=== PATIENT | male | born 1945 | race Caucasian/White ===

== ENCOUNTER 2022-05-09 11:08 | Inpatient (IN) ==
[~2022-05-09 11:08] MED LIST: ASPIRIN 325 MG TABLET PO ONE; DIAZEPAM 5 MG TABLET PO ONE; MAGNESIUM SULF RIDER 2 GM/50 ML PREMIX IV PRN; POTASSIUM CHLORIDE RIDER 10 MEQ/100 ML PREMIX IV PRN; diphenhydrAMINE CAP 50 MG CAPSULE PO ONE
[2022-05-09] MEDS ORDERED: diphenhydrAMINE CAP 50 MG CAPSULE ONE (12:36)
[2022-05-09] MEDS ORDERED: DIAZEPAM 5 MG TABLET ONE (12:36)
[2022-05-09] MEDS ORDERED: ASPIRIN 325 MG TABLET ONE (12:36)
[2022-05-09] MEDS: SODIUM CHLORIDE 0.9% 1,000 ML IV SCH (12:42)
[2022-05-09] MEDS ORDERED: HYDROmorphone 1 MG/1 ML SYRINGE ONE (13:23)
[2022-05-09] MEDS ORDERED: MIDAZOLAM 2 MG/2 ML VIAL ONE (13:23)
[2022-05-09] MEDS ORDERED: HEPARIN 5,000 UNIT/1 ML VIAL ONE ×2 (14:09→14:19)
[2022-05-09] MEDS ORDERED: TIROFIBAN 5,000 MCG/100 ML PREMIX IV ONE (14:33)
[2022-05-09] MEDS ORDERED: PRASUGREL 10 MG TABLET ONE (15:03)
[2022-05-09] MEDS ORDERED: NITROGLYCERIN SL 0.4 MG TABLET SL PRN (15:05)
[2022-05-09] MEDS ORDERED: ZALEPLON 5 MG CAPSULE PO PRN (15:05)
[2022-05-09] MEDS ORDERED: ONDANSETRON 4 MG/2 ML VIAL IV PRN (15:05)
[2022-05-09] MEDS ORDERED: ONDANSETRON ODT 4 MG TABLET PO PRN (15:27)
[2022-05-09] MEDS ORDERED: clonazePAM 0.5 MG TABLET PO STA ×2 (15:59→16:09)
[2022-05-09] MEDS ORDERED: HYDROmorphone 1 MG/1 ML SYRINGE IV ONE (16:00)
[2022-05-09] MEDS: INSULIN GLARGINE 100 UNIT/ML SUBCUT SCH (20:10)
[2022-05-09] MEDS: clonazePAM 0.5 MG TABLET PO SCH (20:10)
[2022-05-09] MEDS: TAMSULOSIN 0.4 MG CAPSULE PO SCH (20:10)
[2022-05-09] MEDS: PANTOPRAZOLE 40 MG TABLET PO SCH (20:10)
[2022-05-09] MEDS ORDERED: NON-FORMULARY MEDICATION (Aspirin 81 mg Tablet) PO SCH (21:00)
[2022-05-09] MEDS ORDERED: clonazePAM 0.5 MG TABLET PO SCH (21:00)
[2022-05-10] MEDS: SODIUM CHLORIDE 0.9% 1,000 ML IV SCH ×2 (02:00→14:05)
[2022-05-10] MEDS: LEVOTHYROXINE 125 MCG TABLET PO SCH (06:20)
[2022-05-10 07:00] LABS: Blood Urea Nitrogen 37 MG/DL (7-18); Calcium 8.6 MG/DL (8.5-10.1); Carbon Dioxide 30 MMOL/L (21-32); Chloride 101 MMOL/L (98-107); Glucose 169 MG/DL (74-106); Osmolality,Calculated 285.8 MOS/KG (273-304); Potassium 4.7 MMOL/L (3.5-5.1); Sodium 137 MMOL/L (136-145)
[2022-05-10 07:33] LABS: Basophils # 0.1 10*3/uL (0.0-0.2); Basophils % 0.6 % (0.0-0.8); Eosinophils # 0.3 10*3/uL (0.0-0.87); Eosinophils % 3.6 % (0.00-10.9); Hematocrit 32.6 VOL% (42.0-52.0); Hemoglobin 10.4 GM/DL (14.0-18.0); Immature Granulocytes % 2.8 %; Immature Granulocytes Absolute 0.25 #; Lymphocytes # 1.5 10*3/uL (1.4-4.0); Lymphocytes % 17.4 % (21.2-54.2); Mean Corpuscular HGB Conc 31.9 GM/DL (32-36); Mean Corpuscular Volume 97.9 FL (87-102); Monocytes # 0.6 10*3/uL (0.11-0.8); Monocytes % 7.1 % (1.7-12.7); NRBC # 0.04 10*3/uL; Neutrophils % 68.5 % (38.7-73.9); Red Blood Count 3.33 MC/CUMM (3.8-5.5); Red Cell Distribution Width 15.2 % (9.3-17.3); White Blood Count 8.9 T/CUMM (4-12)
[2022-05-10 07:39] LABS: Platelet Count 43 T/CUMM (130-400)
[2022-05-10 07:50] LABS: Hypochromia Slight; Microcytosis Slight; Platelet Estimate Decreased
[2022-05-10] MEDS ORDERED: FAMOTIDINE 20 MG TABLET PO SCH (09:00)
[2022-05-10] MEDS: clonazePAM 0.5 MG TABLET PO SCH ×3 (09:00→20:14)
[2022-05-10] MEDS: TAMSULOSIN 0.4 MG CAPSULE PO SCH ×2 (09:43→20:18)
[2022-05-10] MEDS: PARoxetine 20 MG TABLET PO SCH (09:43)
[2022-05-10] MEDS: GLIMEPIRIDE 2 MG TABLET PO SCH (09:43)
[2022-05-10] MEDS: PRASUGREL 10 MG TABLET PO SCH (09:43)
[2022-05-10] MEDS: PANTOPRAZOLE 40 MG TABLET PO SCH ×2 (09:43→20:14)
[2022-05-10] MEDS: ROSUVASTATIN 20 MG TABLET PO SCH (09:43)
[2022-05-10] MEDS: ASPIRIN CHEW 81 MG TABLET PO SCH (09:45)
[2022-05-10 12:37] LABS: Calcium 8.8 MG/DL (8.5-10.1); Osmolality,Calculated 288.8 MOS/KG (273-304); Potassium 4.7 MMOL/L (3.5-5.1)
[2022-05-10] MEDS ORDERED: GLUCAGON 1 MG VIAL IM PRN (13:24)
[2022-05-10] MEDS ORDERED: DEXTROSE 10% 250 ML BAG IV PRN (13:24)
[2022-05-10] MEDS: INSULIN LISPRO 100 UNIT/ML SUBCUT SCH ×2 (16:33→20:15)
[2022-05-10] MEDS: QUEtiapine 25 MG TABLET PO SCH ×2 (20:14)
[2022-05-10] MEDS: carvediloL 3.125 MG TABLET PO SCH (20:14)
[2022-05-10] MEDS: INSULIN GLARGINE 100 UNIT/ML SUBCUT SCH (20:16)
[2022-05-11] MEDS: SODIUM CHLORIDE 0.9% 1,000 ML IV SCH ×2 (01:54→11:35)
[2022-05-11 03:59] LABS: Basophils % 0.3 % (0.0-0.8); Eosinophils # 0.5 10*3/uL (0.0-0.87); Eosinophils % 4.9 % (0.00-10.9); Hemoglobin 9.1 GM/DL (14.0-18.0); Immature Granulocytes % 2.6 %; Immature Granulocytes Absolute 0.26 #; Lymphocytes # 2.2 10*3/uL (1.4-4.0); Lymphocytes % 22.5 % (21.2-54.2); Mean Corpuscular HGB Conc 31.4 GM/DL (32-36); Mean Corpuscular Volume 98.3 FL (87-102); Mean Platelet Volume 12.3 FL (9.6-12.0); Monocytes # 0.8 10*3/uL (0.11-0.8); Monocytes % 8.4 % (1.7-12.7); NRBC # 0.02 10*3/uL; Neutrophils % 61.3 % (38.7-73.9); Platelet Count 67 T/CUMM (130-400); Red Blood Count 2.95 MC/CUMM (3.8-5.5); Red Cell Distribution Width 14.9 % (9.3-17.3); White Blood Count 9.9 T/CUMM (4-12)
[2022-05-11 04:23] LABS: Calcium 8.7 MG/DL (8.5-10.1); Osmolality,Calculated 281.8 MOS/KG (273-304); Potassium 4.1 MMOL/L (3.5-5.1)
[2022-05-11] MEDS: LEVOTHYROXINE 125 MCG TABLET PO SCH (06:03)
[2022-05-11] MEDS: INSULIN LISPRO 100 UNIT/ML SUBCUT SCH ×2 (08:19→13:25)
[2022-05-11] MEDS: GLIMEPIRIDE 2 MG TABLET PO SCH (08:20)
[2022-05-11] MEDS: PANTOPRAZOLE 40 MG TABLET PO SCH (08:21)
[2022-05-11] MEDS: ASPIRIN CHEW 81 MG TABLET PO SCH (08:21)
[2022-05-11] MEDS: clonazePAM 0.5 MG TABLET PO SCH (08:21)
[2022-05-11] MEDS: carvediloL 3.125 MG TABLET PO SCH (08:21)
[2022-05-11] MEDS: PARoxetine 20 MG TABLET PO SCH (08:21)
[2022-05-11] MEDS: PRASUGREL 10 MG TABLET PO SCH (08:21)
[2022-05-11] MEDS: ROSUVASTATIN 20 MG TABLET PO SCH (08:22)
[2022-05-11] MEDS: TAMSULOSIN 0.4 MG CAPSULE PO SCH (08:22)
[2022-05-11 16:03] VITALS: BP 117/63
== END 2022-05-11 17:14 | disposition home health service (06) | DRG 247 ==
LOC: N.CL 11:08 → N.2W 18:03
PROVIDERS: ADMIT Internal Medicine Cardiovascular Disease; ATTEND Internal Medicine Cardiovascular Disease